=== PATIENT | female | born 2005 | race Two or more races ===

== ENCOUNTER 2025-03-28 18:53 | Inpatient (IN) | payer MEDICAID, SELFPAY ==
[2025-03-28] VITALS (12 sets, daily range): BP systolic 112–117; BP diastolic 73; PULSE 78–98; RESP 16–99; TEMP 37.1; O2SAT 97–99; BMI 34.2
--- NOTE | 2025-03-28 19:49 | XR_ITS ---
Examination: Biophysical profile, ultrasound Date and time of exam: March 28, 2025, 2020 hours INDICATIONS: Post dates Technique: Multiple transabdominal sonographic images of the pelvis abdomen obtained. Attention is directed to the breathing movement, gross body movement, amniotic fluid volume and tone. Findings: Amniotic fluid index 6.6 cm Total biophysical profile is 8 of 8. breathing movement is 2. Gross body movement is 2. tone is 2. Qualitative amniotic fluid volume is 2 Impression: Biophysical profile is 8 of 8.
--- NOTE | 2025-03-28 19:49 | XR_ITS ---
Examination: Complete OB ultrasound greater than 14 weeks Date and time of exam: March 28, 2025, 195 hours INDICATIONS: Post dates Findings: Viable intrauterine single fetus with single amniotic sac presentation cephalic. Cardiac motion 160 BPM Placenta anterior grade 3 Umbilical cord insertion seen Amniotic fluid index 6.7 cm spine maternal left Cervix 3.4 cm Ovaries obscured by bowel gas. Composite estimated gestational age based on BPD, head circumference, abdominal circumference, femur length is 39 weeks 2 days Estimated weight 3887 g. Survey of intracranial anatomy, spinal anatomy, abdominal anatomy, four-chamber heart performed with no abnormalities identified. Impression: Viable uterine gestation cephalic presentation.
[2025-03-29] VITALS (105 sets, daily range): BP systolic 97–142; BP diastolic 53–82; PULSE 65–111; RESP 17–18; TEMP 35.8–37.3; O2SAT 96–100
[2025-03-29] MEDS: RINGERS LACTATED 1000 ML 1,000 ML 125 ML IV ×5 (00:58→23:41)
[2025-03-29 01:53] LABS: Basophils # (Auto) 0.0 Thou/mm3 (0.0-0.2); Basophils % (Auto) 0 % (0-2.5); Eosinophils # (Auto) 0.1 Thou/mm3 (0.0-0.5); Eosinophils % (Auto) 1 % (0-10); Hematocrit 34.5 % (36.0-46.0); Hemoglobin 12.4 g/dL (12.0-16.0); Immature Granulocytes Auto 0.04 Thou/mm3 (0.00-0.00); Lymphocytes # (Auto) 2.4 Thou/mm3 (1.0-4.8); Lymphocytes % (Auto) 26 % (10-50); Mean Corpuscular HGB Conc 35.9 g/dl (31.0-37.0); Mean Corpuscular Hemoglobin 33.3 pg (25.0-35.0); Mean Corpuscular Volume 93 fL (80-100); Monocytes # (Auto) 0.5 Thou/mm3 (0.0-0.8); Monocytes % (Auto) 6 % (0-12); Neutrophils # (Auto) 6.2 Thou/mm3 (1.8-7.7); Neutrophils % (Auto) 67 % (37-80); Nucleated Red Blood Cell # 0.00 Thou/mm3 (0.00-0.00); Nucleated Red Blood Cell % 0 /100 WBC (0); Platelet Count 235 Thou/mm3 (140-440); RDW Standard Deviation 41.1 fL (36.4-46.3); Red Blood Count 3.72 Miln/mm3 (4.00-5.20); White Blood Count 9.3 Thou/mm3 (4.5-11.0)
[2025-03-29 02:26] LABS: Syphilis Nonreactive (Nonreactive)
--- NOTE | 2025-03-29 03:26 | PD.LDHP ---
Documentation for date of: 03/29/25 OB Labor/Induct. HPI History of Present Illness Chief complaint: Induction of labor 40 weeks : 1 Para: 0 Term pregnancies: 0 pregnancies: 0 Living children: 0 History of Abortions: Spontaneous and Elective: 0 History of Vaginal deliveries: 0 History of sections: No History of : No Date of last menstrual period: 06/12/24 CANDIDO: 03/19/25 Gestational Age (weeks): 41 Gestational Age (days): 3 Gestational age based on last menstrual period: 41 Indication for induction: post dates History of present illness: The patient is a 19-year-old G1, P0 with all care uncomplicated Dr. Low who presented for an NST BPP. Her TESS was found to be 6.6. She was postdates with a borderline TESS she was admitted for induction of labor. Her group B strep is negative History of Present Dating criteria: LMP confirmed by 1st trimester US Adequate Care: No (late to care) Ultrasounds: normal mid trimester US Obstetrical complications: none Medical complications: none Labs Maternal Blood Type: O Pos Labs: Negative: RPR, Hepatitis B, Rubella Titre (Nonimmune), HIV and Group Beta Strep and Unknown: Chlamydia, Gonorrhea, Herpes Type 1, Herpes Type 2 and Covid-19 Review of Systems Review of Systems Narrative Review of Systems: Occasional contractions good movement. Past Medical History Surgical History SURGICAL: Negative Section Past Medical History Comments PMH COMMENT: Patient denies chronic medical problems. Meds Home Medications and Allergies Home Medications ?Medication ?Instructions ?Recorded ?Confirmed ?Type prenat.vits,kris,[id number] 1 tab PO QDAY 03/28/25 03/28/25 History Allergies Allergy/AdvReac Type Severity Reaction Status Date / Time No Known Allergies Allergy Verified 03/28/25 20:07 OB Exam Physical Exam Vital signs: Temp Pulse Resp BP Pulse Ox 98.8 F 75 16 104/66 98 03/28/25 19:10 03/29/25 02:32 03/28/25 23:39 03/29/25 02:32 03/28/25 19:49 Routine Abdominal Exam Abdominal: Present soft Detailed Labor and Delivery Exam Effacement (%): 50 Cervix position: mid station: -2 Consistency: medium Presentation: Vertex Membranes: intact monitor accelerations: 15x15 monitor decelerations: None adjunct faculty for medical terminology variability: Moderate (11-25) Contraction frequency (min): Irregular Tachysystole: No Contraction intensity: Mild OB Results Labs 03/29/25 00:56 Labs: Short CBC 03/29/25 Range/Units 00:56 WBC 9.3 (4.5-11.0) Thou/mm3 Hgb 12.4 (12.0-16.0) g/dL Hct 34.5 L (36.0-46.0) % Plt Count 235 (140-440) Thou/mm3 OB Assessment & Plan Assessment and Plan (1) Post-dates : Status: Acute Assessment and plan: For induction of labor with Cytotec. Baby is vertex and 3800 g. Additional Plan Induction method: per misoprostol protocol Plan: induction (1) Post-dates Qualifiers: Post-term type: 40-42 weeks gestation Qualified Code(s): O48.0 - Post-term
[2025-03-29 05:07] LABS: Amphetamine/Metham Scrn,Ur OB Negative (Negative); Benzoylecgonine Screen, Ur OB Negative (Negative); Opiate Screen,Urine OB Negative (Negative); THC Screen,Urine OB Negative (Negative)
[2025-03-29 09:59] LABS: Chlamydia trachomatis PCR Negative (Not Detect); Neisseria Gonorrhoeae DNA PCR Negative (Not Detect); Trichomonas Negative (Negative)
[2025-03-30] VITALS (79 sets, daily range): BP systolic 100–138; BP diastolic 60–91; PULSE 67–138; RESP 15–31; TEMP 36.6–38.4; O2SAT 95–100
[2025-03-30] MEDS: Ampicillin Inj 2,000 MG in SODIUM CHLORIDE 0.9% (POP) 100 ML 100 MG IV ×5 (00:51→23:36)
[2025-03-30] MEDS: ACETAMINOPHEN 325 MG TABLET 650 MG PO (00:56)
[2025-03-30] MEDS: GENTAMICIN/NS 80 MG IVPB 80 MG/50 ML PIGGYBACK 50 MG IV ×3 (02:06→20:06)
[2025-03-30] MEDS: TERBUTALINE SULF INJ 1 MG/ML VIAL 0.25 MG SC (02:39)
[2025-03-30] MEDS: METOCLOPRAMIDE INJ 5 MG/ML VIAL 2 ML 10 MG IVP (03:14)
[2025-03-30] MEDS: ceFAZolin/D5W 2 GM IV 2 GM/100 ML BAG IV (03:14)
[2025-03-30] MEDS: FAMOTIDINE INJ 10 MG/ML VIAL 2 ML 20 MG IV (03:15)
--- NOTE | 2025-03-30 04:18 | XR_ITS ---
Examination: AP chest single view Technique one AP portable semiupright chest single view Date and time: March 30, 2025 0514 hours INDICATIONS: Sepsis alert FINDINGS: Normal heart size. Lungs are clear. The osseous structures are intact IMPRESSION: No active disease
--- NOTE | 2025-03-30 04:19 | ESOP_ITS ---
Operative Note - [facility] Procedure Date of procedure: 03/30/25 Procedure Performed: Primary low-transverse section Indication: 19-year-old G1, P0 at 41 weeks plus being induced Suspected chorioamnionitis with maternal fever and tachycardia Category 2 trending to category 3 heart rate tracing Anesthesia type: Epidural Procedure description: Informed consent was obtained and the patient was taken to the operating room. Identity was confirmed by double identifiers and she was placed on the operating table. Spinal anesthesia was administered and she was positioned in the supine position. The abdomen and perineum were prepped in the usual sterile fashion and a Julian catheter was placed to continuous drainage. Sterile drapes were applied. The incision site was tested for adequacy of anesthesia. A Pfannenstiel skin incision was made with a scalpel and carried to the subcutaneous fat up to the rectus fascia. The rectus fascia was incised on either side of the midline and the incisions were extended bilaterally. The fascia was gently dissected off the ventral surface of the rectus muscle both superiorly and inferiorly. The rectus bellies were gently in the midline and the peritoneum was identified and entered bluntly using the surgeon's finger. The peritoneal opening was now stretched to create an adequate opening for access to the uterus. David O-ring retractor was placed for adequate visualization. The anterior surface of the uterus was palpated. The bladder reflection was identified and a Shivani Sanchez low transverse uterine incision was made in the lower uterine segment taking care to avoid the bladder. Uterine entry was accomplished bluntly and the opening was stretched to create adequate room. The amniotic membranes were now ruptured and alex blood stained amniotic fluid was released. The fetus was noted to be in the vertex position. The head was gently elevated out of the maternal pelvis and single loop of nuchal cord was found around the neck. The cord was released and the rest of the shoulders and body were delivered by gentle fundal pressure. Umbilical cord was doubly clamped, divided and the was handed over to the waiting team. Cord gas samples were obtained. The placenta was delivered by gentle traction on the umbilical cord. The interior of the uterus was now thoroughly cleaned of all blood and debris and membranes. The hysterotomy angles were grasped by a pair of Allis clamps and the hysterotomy was closed using 1 Monocryl suture in 2 layers. The first layer was used to approximate the muscle in a running locked fashion, the second layer was used to approximate the thickness of the myometrium and uterine serosa in an imbricated manner. Once the repair was completed the hysterotomy was inspected and noted to be adequately hemostatic. The hysterotomy was once again inspected and hemostasis was noted to be satisfactory. The David retractor was now removed. The peritoneal edges were re approximated. The rectus muscles were re approximated. The rectus fascia was now repaired using 0 Vicryl suture in a running fashion. The subcutaneous layer was now copiously irrigated using warm normal saline. All bleeding points were cauterized using the Bovie. The subcutaneous fat was closed using 3-0 Vicryl. The skin was closed using 4-0 Monocryl in a subcuticular fashion. The skin was cleaned and a sterile dressing was applied. The patient was now undraped, the abdomen and back were thoroughly cleaned and she was transferred to the recovery room in a stable and awake condition. The patient tolerated the entire procedure well. No complications were encountered. All instrument, sponge and lap counts were correct x2. Specimen: none Estimated blood loss (ml): 600 Complications: none Surgical staff Operation Date: 03/30/25 03:38 <No data on this case meets the specified criteria> Diagnosis Discharge Diagnosis (1) Post-dates : Status: Acute (2) Chorioamnionitis: Status: Acute (3) Non-reassuring cardiotocographic tracing: Status: Acute Problem List Completed Was Problem List Reviewed/Reconciled?: Yes (1) Post-dates Qualifiers: Post-term type: 40-42 weeks gestation Qualified Code(s): O48.0 - Post-term
--- NOTE | 2025-03-30 04:22 | OBDSUM_ITS ---
Data (Klein) Data Hx Section: No : 1 Term: 0 : 0 Livin Abortions: Spontaneous & Theraputic: 0 Delivery Data (Klein) Labor Data Initiation of labor: Induction Induction/Augmentation Agent: Cytotec-PO ROM date: 03/29/25 ROM time: 17:25 Amniotic membrane rupture type: Spontaneous Amniotic fluid description: Light Meconium Delivery Data Onset of labor date: 03/29/25 Onset of labor time: 19:00 delivery date: 03/30/25 delivery time: 03:55 Placenta delivery date: 03/30/25 Placenta delivery time: 03:55 Delivered by: mandy Delivery nurse: jannie mo rn. Neworn nurse: josie de leon. Advertisement Compositor at delivery: Yes (dr. valencia) Support person(s) at delivery: sabrina Other staff at delivery: bina paredes or veronica tompkins. Delivery Method Delivery method: Low Transverse Presentation: Vertex Anesthesia Type Anesthesia Type: Epidural Anesthesia type: Epidural Placenta Placenta delivery description: Spontaneous Cord blood sent to lab: Yes cord blood collection: Cord Blood Type Episiotomy Episiotomy description: None Umbilical Cord cord description: 3 Vessels Alexander Data (Klein) Alexander Data order: 1 Alexander's gender: Male
[2025-03-30 04:57] LABS: Basophils # (Auto) 0.0 Thou/mm3 (0.0-0.2); Basophils % (Auto) 0 % (0-2.5); Eosinophils # (Auto) 0.0 Thou/mm3 (0.0-0.5); Eosinophils % (Auto) 0 % (0-10); Hematocrit 28.3 % (36.0-46.0); Hemoglobin 10.1 g/dL (12.0-16.0); Immature Granulocytes Auto 0.06 Thou/mm3 (0.00-0.00); Lymphocytes # (Auto) 1.1 Thou/mm3 (1.0-4.8); Lymphocytes % (Auto) 8 % (10-50); Mean Corpuscular HGB Conc 35.7 g/dl (31.0-37.0); Mean Corpuscular Hemoglobin 33.1 pg (25.0-35.0); Mean Corpuscular Volume 93 fL (80-100); Monocytes # (Auto) 1.1 Thou/mm3 (0.0-0.8); Monocytes % (Auto) 8 % (0-12); Neutrophils # (Auto) 12.0 Thou/mm3 (1.8-7.7); Neutrophils % (Auto) 84 % (37-80); Nucleated Red Blood Cell # 0.00 Thou/mm3 (0.00-0.00); Nucleated Red Blood Cell % 0 /100 WBC (0); Platelet Count 168 Thou/mm3 (140-440); RDW Standard Deviation 41.3 fL (36.4-46.3); Red Blood Count 3.05 Miln/mm3 (4.00-5.20); White Blood Count 14.2 Thou/mm3 (4.5-11.0)
[2025-03-30] MEDS: OXYTOCIN in NS 20 units 20 UNIT/1,000 ML BAG 125 UNIT IV ×2 (04:58→11:54)
[2025-03-30 05:13] LABS: INR 0.9 (0.9-1.3); Lactate (Lactic Acid) 5.0 mMol/L (0.4-2.0); Partial Thromboplastin Time 27.3 Seconds (22.0-36.0); Prothrombin Time 10.3 Seconds (9.0-12.2)
[2025-03-30 05:27] LABS: B-Type Natriuretic Peptide 102 pg/mL (0-100)
[2025-03-30 05:47] LABS: Alanine Aminotransferase < 7 U/L (10-49); Albumin, Serum 2.9 gm/dL (3.5-5.0); Albumin/Globulin Ratio 1.5 (1.2-2.2); Alkaline Phosphatase 322 U/L (46-116); Anion Gap 15 (7-16); Aspartate Amino Transferase 19 U/L (0-34); BUN/Creatinine Ratio 9 Ratio (12-20); Bilirubin,Total 0.6 mg/dL (0.3-1.2); Blood Urea Nitrogen 6 mg/dL (9-23); Calcium 8.6 mg/dL (8.3-10.6); Calcium (Corrected) 9.5 mg/dL (8.5-10.1); Carbon Dioxide 17.2 mMol/L (20.0-31.0); Chloride 108 mMol/L (98-107); Creatinine (Component) 0.7 mg/dL (0.6-1.3); Estimated Creatinine Clearance 119.5 mL/min (>60); Globulin 1.9 gm/dL (2.3-3.5); Glucose 126 mg/dL (74-106); Osmolality,Calculated 279 (275-295); Potassium 3.5 mMol/L (3.4-5.1); Sodium 140 mMol/L (136-145); Total Protein 4.8 gm/dL (5.7-8.2); eGFR > 60 See Note
[2025-03-30] MEDS: METHYLERGONOVINE INJ 0.2 MG/ML VIAL IM (05:52)
[2025-03-30] MEDS: TRANEXAMIC ACID 1,000 MG IVPB 1,000 MG/100 ML BAG 200 MG IV (05:52)
[2025-03-30 06:05] LABS: Collection Type, Urine Catheter
[2025-03-30 06:20] LABS: Bilirubin,Urine Negative (Negative); Blood,Urine 3+ (Negative); Clarity,Urine Clear (Clear/Hazy); Color,Urine Colorless (Lt Yel-Yel); Glucose, Urine Negative (Negative); Hyaline Casts,Urine < 1 /hpf (0-1); Ketones,Urine Negative (Negative); Leukocyte Esterase,Urine Positive (Negative); Nitrite,Urine Negative (Negative); PH,Urine 7.0 (5.0-7.0); Protein,Urine Negative (Neg - Trace); RBC,Urine 6 /hpf (0-3); Specific Gravity,Urine 1.004 (1.001-1.035); Squamous Epithelial Cell,Urine 2 /hpf (0-5); Urobilinogen,Urine Negative mg/dL (0.0-1.0); WBC,Urine 5 /hpf (0-5)
[2025-03-30] MEDS: ACETAMINOPHEN IVPB 1,000 MG/100 ML VIAL 250 MG IV ×3 (07:11→20:05)
[2025-03-30] MEDS: RINGERS LACTATED 1000 ML 1,000 ML 125 ML IV ×2 (07:12→20:05)
--- NOTE | 2025-03-30 07:47 | PC.NURSE ---
0338- PATIENT IN OR. [id number] NOTED FHR BETWEEN 120-170 BPM. TAKEN OFF MONITOR FOR ABDOMINAL PREP.
[2025-03-30 07:54] LABS: Reflex Lactate? Y
[2025-03-30 08:24] LABS: Lactic Acid, 3 HR 2.5 mMol/L (0.4-2.0)
--- NOTE | 2025-03-30 08:32 | PD.LDDS ---
DS: Providers Provider Date of admission: 03/28/25 23:30 Primary care physician: Physician No Primary/Family Admitting Provider: Shira Rogers MD ([facility]) Attending Provider on Admission: Ramos Holliday MD Consults: 03/30/25 05:08 Referral Routine Comment: Attending Provider on DC: Ramos Holliday MD Discharging Provider: Ramos Holliday MD DS: Diagnosis Problem List Completed Was Problem List Reviewed/Reconciled?: Yes Summary/Hosp Course Brief History: The patient is a 19-year-old G1, P0 with all care uncomplicated Dr. Low who presented for an NST BPP. Her TESS was found to be 6.6. She was postdates with a borderline TESS she was admitted for induction of labor. Her group B strep is negative Peripartum Data Delivery Method: Low Transverse Episiotomy Description: None Procedures: Procedures Operation Date: 03/30/25 03:38 <No data on this case meets the specified criteria> Operation Date: 03/30/25 04:00 Actual Procedure Side Surgeon p in OB Bilateral George Mendoza MD Time Spent with Patient Time attestation: Total time spent providing and/or coordinating discharge services: Exam Vital Signs Temp Pulse Resp BP Pulse Ox O2 Del Method O2 Flow Rate 100.7 F H 78 22 H 138/87 H 98 Room Air 10 03/30/25 06:30 03/30/25 06:45 03/30/25 06:45 03/30/25 06:45 03/30/25 06:45 03/30/25 06:45 03/30/25 03:01 Discharge Plan Plan Patient Disposition: HOME (Self Care) Patient condition on transfer: Stable Prescriptions/Referrals Prescriptions/Med Rec: New ibuprofen 600 mg tablet 600 mg PO Q6H PRN (Reason: pain) Qty: 30 0RF hydrocodone-acetaminophen 5-325 mg tablet 1 tab PO Q6H MDD 4 PRN (Reason: pain) Qty: 20 0RF Continued prenat.vits,kris,cyo-[id number] Tablet 1 tab PO QDAY Referrals: No Primary/Family,Physician [Primary Care Provider] - Patient/Caregiver Discharge Instructions Discharge Activity: activity as tolerated Other Discharge Activity Instructions:: Follow up with Primary OB in 1 week. Education Materials: C Section Dc Print Language: Portuguese Stand Alone Forms: Kimberlee Award Info., Patient Portal Info Letter Planned Discharge Date 03/30/25
[2025-03-30] MEDS: DOCUSATE SOD 100 MG CAPSULE PO (09:18)
[2025-03-30 09:33] LABS: Basophils # (Auto) 0.0 Thou/mm3 (0.0-0.2); Basophils % (Auto) 0 % (0-2.5); Eosinophils # (Auto) 0.0 Thou/mm3 (0.0-0.5); Eosinophils % (Auto) 0 % (0-10); Hematocrit 27.8 % (36.0-46.0); Hemoglobin 9.8 g/dL (12.0-16.0); Immature Granulocytes Auto 0.07 Thou/mm3 (0.00-0.00); Lymphocytes # (Auto) 1.1 Thou/mm3 (1.0-4.8); Lymphocytes % (Auto) 7 % (10-50); Mean Corpuscular HGB Conc 35.3 g/dl (31.0-37.0); Mean Corpuscular Hemoglobin 32.9 pg (25.0-35.0); Mean Corpuscular Volume 93 fL (80-100); Monocytes # (Auto) 0.7 Thou/mm3 (0.0-0.8); Monocytes % (Auto) 5 % (0-12); Neutrophils # (Auto) 14.1 Thou/mm3 (1.8-7.7); Neutrophils % (Auto) 88 % (37-80); Nucleated Red Blood Cell # 0.00 Thou/mm3 (0.00-0.00); Nucleated Red Blood Cell % 0 /100 WBC (0); Platelet Count 172 Thou/mm3 (140-440); RDW Standard Deviation 41.1 fL (36.4-46.3); Red Blood Count 2.98 Miln/mm3 (4.00-5.20); White Blood Count 16.0 Thou/mm3 (4.5-11.0)
[2025-03-30] MEDS: KETOROLAC INJ 30 MG/ML VIAL IVP (17:54)
[2025-03-31] MEDS: ACETAMINOPHEN IVPB 1,000 MG/100 ML VIAL 250 MG IV (02:02)
[2025-03-31 03:33] VITALS: BP 106/69; PULSE 72; RESP 14; TEMP 36.6; O2SAT 98
[2025-03-31 05:23] LABS: Basophils # (Auto) 0.0 Thou/mm3 (0.0-0.2); Basophils % (Auto) 0 % (0-2.5); Eosinophils # (Auto) 0.1 Thou/mm3 (0.0-0.5); Eosinophils % (Auto) 1 % (0-10); Hematocrit 25.1 % (36.0-46.0); Hemoglobin 8.9 g/dL (12.0-16.0); Immature Granulocytes Auto 0.11 Thou/mm3 (0.00-0.00); Lymphocytes # (Auto) 1.9 Thou/mm3 (1.0-4.8); Lymphocytes % (Auto) 15 % (10-50); Mean Corpuscular HGB Conc 35.5 g/dl (31.0-37.0); Mean Corpuscular Hemoglobin 34.0 pg (25.0-35.0); Mean Corpuscular Volume 96 fL (80-100); Monocytes # (Auto) 0.7 Thou/mm3 (0.0-0.8); Monocytes % (Auto) 6 % (0-12); Neutrophils # (Auto) 9.6 Thou/mm3 (1.8-7.7); Neutrophils % (Auto) 77 % (37-80); Nucleated Red Blood Cell # 0.00 Thou/mm3 (0.00-0.00); Nucleated Red Blood Cell % 0 /100 WBC (0); Platelet Count 199 Thou/mm3 (140-440); RDW Standard Deviation 44.2 fL (36.4-46.3); Red Blood Count 2.62 Miln/mm3 (4.00-5.20); White Blood Count 12.4 Thou/mm3 (4.5-11.0)
[2025-03-31] MEDS: Ampicillin Inj 2,000 MG in SODIUM CHLORIDE 0.9% (POP) 100 ML 100 MG IV ×5 (06:06→23:39)
--- NOTE | 2025-03-31 07:04 | PD.LDPPPRG ---
Subjective Subjective Interval history: Patient denies any problem complaint. Exam Vital Signs Temp Pulse Resp BP Pulse Ox O2 Del Method O2 Flow Rate 97.9 F 72 14 106/69 98 Room Air 10 03/31/25 03:33 03/31/25 03:33 03/31/25 03:33 03/31/25 03:33 03/31/25 03:33 03/31/25 03:33 03/30/25 03:01 Routine Respiratory Exam Comments: Clear to auscultation Routine Cardiovascular Exam Comments: Regular rate and rhythm Routine Abdominal Exam Comments: Fundus is firm . Dressing dry and intact Routine Extremities Exam Comments: Nontender Objective Labs 03/31/25 04:55 03/30/25 04:40 Labs: Laboratory Results - last 24 hr 03/30/25 03/31/25 08:05 04:55 WBC 16.0 H 12.4 H RBC 2.98 L 2.62 L Hgb 9.8 L 8.9 L Hct 27.8 L 25.1 L MCV 93 96 MCH 32.9 34.0 MCHC 35.3 35.5 RDW Std Deviation 41.1 44.2 Plt Count 172 199 Neut % (Auto) 88 H 77 Lymph % (Auto) 7 L 15 Shackelford % (Auto) 5 6 Eos % (Auto) 0 1 Baso % (Auto) 0 0 Neut # (Auto) 14.1 H 9.6 H Lymph # (Auto) 1.1 1.9 Shackelford # (Auto) 0.7 0.7 Eos # (Auto) 0.0 0.1 Baso # (Auto) 0.0 0.0 Immature Gran # (Auto) 0.07 H 0.11 H Absolute Nucleated RBC 0.00 0.00 Immature Gran % 0 1 H Nucleated RBC % 0 0 Lactic Acid 2.5 H Assessment & Plan Problem List (1) Post-dates : Status: Acute (2) Chorioamnionitis: Status: Acute (3) Non-reassuring cardiotocographic tracing: Status: Acute Assessment Comment Assessment comment: day #1 status post spontaneous C/S Remove Dressing D/C IV Encourage ambulation Time Spent With Patient Time: Total time spent is greater than 50% in coordination of care (as documented) at patient's floor/unit and/or counseling patient:
[2025-03-31 07:10] VITALS: BP 107/69; PULSE 75; RESP 18; TEMP 36.7; O2SAT 99
[2025-03-31] MEDS: DOCUSATE SOD 100 MG CAPSULE PO (08:34)
[2025-03-31] MEDS: GENTAMICIN/NS 80 MG IVPB 80 MG/50 ML PIGGYBACK 50 MG IV ×2 (08:34→20:02)
[2025-03-31 11:45] VITALS: BP 108/67; PULSE 78; RESP 18; TEMP 36.8; O2SAT 99
[2025-03-31 20:00] VITALS: BP 103/66; PULSE 93; RESP 18; TEMP 37.6; O2SAT 98
[2025-03-31] MEDS: IBUPROFEN TAB 400 MG TABLET 800 MG PO (20:02)
[2025-04-01 03:47] VITALS: BP 110/71; PULSE 65; RESP 18; TEMP 36.8; O2SAT 99
[2025-04-01] MEDS: IBUPROFEN TAB 400 MG TABLET 800 MG PO (05:01)
[2025-04-01] MEDS: Ampicillin Inj 2,000 MG in SODIUM CHLORIDE 0.9% (POP) 100 ML 100 MG IV (05:43)
[2025-04-01 07:55] VITALS: BP 111/74; PULSE 81; RESP 18; TEMP 36.8; O2SAT 98
--- NOTE | 2025-04-01 08:49 | PD.LDPPPRG ---
Subjective Subjective Interval history: Patient denies any problem or complaint. She is voiding and ambulating and tolerating a regular diet and passing flatus. She denies any chest pain palpitation shortness of breath or lower extremity pain. Exam Vital Signs Temp Pulse Resp BP Pulse Ox O2 Del Method O2 Flow Rate 98.2 F 65 18 110/71 99 Room Air 10 04/01/25 03:47 04/01/25 03:47 04/01/25 03:47 04/01/25 03:47 04/01/25 03:47 04/01/25 03:47 03/30/25 03:01 Routine Respiratory Exam Comments: Clear to auscultation bilaterally Routine Cardiovascular Exam Comments: Regular rate and rhythm Routine Abdominal Exam Comments: Incision clear and intact fundus is firm Routine Extremities Exam Comments: Extremities nontender Objective Labs 03/31/25 04:55 03/30/25 04:40 Labs: Laboratory Results - last 24 hr 03/29/25 00:56 Crossmatch See Detail Impressions Impression: Postop day #2 Status post delivery Remains afebrile DC antibiotics Discharge home Discharge instructions given Follow-up in the office in 1 week Assessment & Plan Problem List (1) Post-dates : Status: Acute (2) Chorioamnionitis: Status: Acute (3) Non-reassuring cardiotocographic tracing: Status: Acute Time Spent With Patient Time: Total time spent is greater than 50% in coordination of care (as documented) at patient's floor/unit and/or counseling patient:
[2025-04-01] MEDS: GENTAMICIN/NS 80 MG IVPB 80 MG/50 ML PIGGYBACK 50 MG IV (09:38)
[2025-04-01] MEDS: DOCUSATE SOD 100 MG CAPSULE PO (09:38)
[2025-04-01 12:00] VITALS: BP 120/78; PULSE 81; RESP 18; TEMP 36.9; O2SAT 98
--- NOTE | 2025-04-01 12:19 | PC.CC ---
0900-ASW completed a face to face assessment with the pt at bedside. Present was GRIFFIN Thorne. ASW explained the reason of the referral which it was reported the pt was late to care. Pt reported that she was late to care because she did not know she was and ignored the signs. Pt reported that this is her first child and did not understand the signs. Pt reported that also could not locate a OB provider until later in her . Pt reported that her OB is Dr. Meneses from [facility]. Pt reported that the infants Peds will be someone from [facility], but is uncertain of who exactley that will be. Pt reported she delivered via at 41 weeks, 3 days. Pt reported her care was consistent once she started care. Pt reported that she is feeding the formula at this time. Pt reported that she is unaware if the infant passed the hearing test. Pt denied that the infant was on lights. Pt denied prior CWS/CPS history as this is her first child. Pt reports she has all she needs at home and is ready for the infant. Pt reports she has supports from her family and friends. At this time, there are no concerns with SS.
== END 2025-04-01 12:41 | disposition home or self-care (01) | DRG 540 ==
LOC: S4SX 03-30 04:09 → S4NX 03-30 04:19
PROVIDERS: Obstetrics & Gynecology; Admitting Provider Obstetrics & Gynecology; Visit Provider Specialist
PROC: 3E0R3BZ Introduction of Anesthetic Agent into Spinal Canal, Percutaneous Approach (ICD-10-PCS; CPT 59514; principal; 2025-03-30 03:45)
DX: O48.0 Post-term pregnancy (principal); O69.81X0 Labor and delivery complicated by cord around neck, without compression, not applicable or unspecified; O77.0 Labor and delivery complicated by meconium in amniotic fluid; Z37.0 Single live birth; Z3A.41 41 weeks gestation of pregnancy; O41.1230 Chorioamnionitis, third trimester, not applicable or unspecified
CPT/HCPCS: 36415; 59025; 71045; 76805; 76819; 80053; 80307; 81001; 83605; 83880; 85025; 85610; 85730; 86780; 86850; 86900; 86901; 86923; 87040; 87086; 87491; 87591; 87661; 94762; A4217; A4314; A4649; J0131; J0290; J0689; J1580; J1885; J2210; J2274; J2405; J2590; J2765; J2795; J3010; J3105; J3490; J7120; S0077; A9270; J0736; J2270